=== PATIENT | male | born 1955 | race Caucasian/White ===

== ENCOUNTER 2021-10-25 13:13 | Emergency (ER) | payer MEDICARE, MEDICAID, SELFPAY ==
[2021-10-25 13:34] VITALS: BP 128/86; PULSE 77; RESP 16; TEMP 36.8; O2SAT 94
--- NOTE | 2021-10-25 13:39 | ED_ITS ---
HPI - Fall General: Chief Complaint: Fall Stated Complaint: injury to left & right eye Time Seen by Provider: 10/25/21 13:38 History of Present Illness: Mr. Cárdenas is a 66-year-old gentleman who presents to the emergency department due to fall with head injury. He reports 3 to 4 days ago being intoxicated with alcohol when he fell striking his face. He does not think that there were preceding symptoms necessarily but was intoxicated. He was able to ambulate after. He noticed bruising fairly quickly after. He does have facial pain but no specific areas. No changes in hearing or vision. Intensity symptoms is mild to moderate. Course has persisted. No other specific changes in health, exacerbating, or alleviating factors identified. Onset (ago): day(s) Fall from: standing Loss of consciousness: None Prolonged down time: no Symptoms prior to fall: none Context: alcohol use Location of injury: face Severity: moderate Quality: aching Review of Systems General: Reports: 10 or more systems reviewed and unremarkable except in HPI and below PFSH ED PFSH: Medical History (Updated 11/02/21 @ 00:01 by ) Atrial fibrillation COPD (chronic obstructive pulmonary disease) Family History (Updated 10/25/21 @ 14:43 by Yoandy Malin MD) Denies family history of Clotting disorder Bleeding disorder Social History (Updated 10/25/21 @ 14:44 by Yoandy Malin MD) Smoking and tobacco status: current every day smoker Alcohol intake: current Alcohol intake frequency: 3 or more drinks per day Alcohol type: hard liquor Physical Exam Const: COMMON NORMALS: alert GENERAL APPEARANCE: cooperative and well developed HENMT: COMMON NORMALS: normocephalic HEAD & SCALP: normocephalic THROAT: posterior oropharynx normal OTHER: Bilateral periorbital ecchymosis. No gerard signs. No hemotympanum. No otorrhea or rhinorrhea. Jaw alignment normal. Dentition baseline. No obvious bony step-offs. No septal hematoma. Displacement of nasal septum?mild. No evidence of ocular entrapment. Eye: COMMON NORMALS: conjunctivae normal CONJUNCTIVA: Yes conjunctivae normal SCLERA: sclerae normal Neck/C-Spine: COMMON NORMALS: supple GENERAL: Yes trachea midline Resp: COMMON NORMALS: normal respiratory effort EFFORT & INSPECTION: Yes able to speak in complete sentences AUSCULTATION: wheezes and diminished lung sounds Cardio: COMMON NORMALS: regular rate and regular rhythm RATE: regular rate RHYTHM: regular rhythm GI: COMMON NORMALS: Soft to palpation PALPATION: Yes Soft to palpation and No Tenderness to palpation present (GI) Back/Pelvis: COMMON NORMALS: no thoracic nor lumbar tenderness Extremity: GENERAL: Yes normal exam except as noted and No edema Neuro: COMMON NORMALS: moves all extremities SENSORIUM/ORIENTATION: Yes alert and No Orientation impaired Psych: COMMON NORMALS: mental status grossly normal and Normal thought process present THOUGHT PROCESS: Normal thought process present Course ED course: - Patient was seen and evaluated by me at bedside - Patient placed on cardiac monitors, vital signs obtained - Initial evaluation notable for bilateral periorbital ecchymosis, wheezing, exam as above - Imaging notable for 2 mm right frontotemporal lobe acute to subacute subdural hematoma, additional focus of increased density left anterior corpus callosum suspicious for acute focus of hemorrhage. He has prior large area of infarct. No evidence of basilar skull fracture on face bone CT. No acute C-spine injury. - Subsequently labs added on, Labs notable for normal hemoglobin, normal INR. No other significant abnormality requiring intervention. - Upon serial reexamination after treatment the patient was improved with breathing treatment - Based on patient history, evaluation, and testing as interpreted the most likely cause of the patient's condition is traumatic intracranial hemorrhage - The results of ED evaluation were discussed with the patient including plan for transfer due to requirement for level of care not available if discharged to prevent significant worsening/deterioration. Specifically patient requires neurosurgical specialist evaluation. - Patient accepted by Dr. Saucedo as a ED to ED transfer - Patient was transported by EMS from the emergency department without acute neurologic decompensation Note: Click bubbles or prepopulated gomes in note writing are used for assistance with data collection and billing and are inherently more limited than narrative and other text portions of this note. Please use narrative for additional clinical history and defer to narrative/free test for any case of contradictory information. If information appears in only free text or click bubble it should be considered present or absent as reported. Please contact note tech writer for clarifications of clinical information or contradictory information. MDM is a brief summary, contradictory or erroneous seeming information should be clarified and full note should be reviewed. Vital Signs: Vital signs: Vital Signs Temperature 98.2 F 10/25/21 13:34 Pulse Rate 90 10/25/21 13:56 Respiratory Rate 18 10/25/21 13:56 Blood Pressure 128/86 10/25/21 13:34 Pulse Oximetry 92 10/25/21 13:56 MDM - Fall Medical Decision Making 66-year-old gentleman with history of daily alcohol use approximately 1 pint per day presenting with significant fall from standing 3 days ago. He also has recurrent falls. Primary concern is bilateral black eyes. No focal neurologic deficits. Patient found to have subdural and intraparenchymal small hemorrhage. Transferred for neurosurgical evaluation, left in satisfactory condition wit hout acute neurologic decompensation. Medical Records I reviewed the patient's medical records. Lab Data I reviewed the patient's lab results. : 10/25/21 14:48 10/25/21 14:48 Radiology Impressions Cervical Spine CT 10/25/21 13:48 IMPRESSION: 1. Advanced degenerative changes throughout the cervical spine with areas of stenosis. 2. No acute fracture is identified. Face CT 10/25/21 13:48 IMPRESSION: 1. No definite acute fractures are identified. There is very minimal buckling of the anterior wall of the RIGHT maxillary sinus and the RIGHT nasal bone but no associated edema or air-fluid levels. 2. Moderate soft tissue hematoma centered over the RIGHT orbit and globe. Head CT 10/25/21 13:48 IMPRESSION: 1. Very small, 2 mm RIGHT frontotemporal lobe acute to subacute subdural hematoma. 2. Focus of increased density in the LEFT anterior corpus callosum suspicious for an acute focus of hemorrhage. 3. Prior large infarct with encephalomalacia in the RIGHT temporal, RIGHT occipital lobes. 4. Extra-axial dilatation RIGHT lateral ventricle. 5. No acute skull fracture or facial bone fracture identified. Facial bone CT to follow. Laboratory Results WBC 6.5 10^3/uL (4.0-10.0) 10/25/21 14:48 RBC 3.95 10^6/uL (4.1-5.3) L 10/25/21 14:48 Hgb 13.2 g/dL (11.7-16.6) 10/25/21 14:48 Hct 39.4 % (42.0-52.0) L 10/25/21 14:48 MCV 99.7 fl (80-94) H 10/25/21 14:48 MCH 33.4 pg (28.0-34.0) 10/25/21 14:48 MCHC 33.5 g/dL (30.0-36.0) 10/25/21 14:48 RDW 13.3 % (12.1-15.1) 10/25/21 14:48 Plt Count 192 10^3/cmm (130-400) 10/25/21 14:48 MPV 11.7 fL (7.4-10.4) H 10/25/21 14:48 Neut % (Auto) 62.4 % 10/25/21 14:48 Lymph % (Auto) 21.5 % 10/25/21 14:48 Maury % (Auto) 9.0 % 10/25/21 14:48 Eos % (Auto) 6.0 % 10/25/21 14:48 Baso % (Auto) 0.5 % 10/25/21 14:48 Neut # (Auto) 4.07 10^3/uL (1.8-7.7) 10/25/21 14:48 Lymph # (Auto) 1.4 10^3/uL (0.8-4.8) 10/25/21 14:48 Maury # (Auto) 0.6 10^3/uL (0.2-0.9) 10/25/21 14:48 Eos # (Auto) 0.4 10^3/uL (0.0-0.8) 10/25/21 14:48 Baso # (Auto) 0.0 10^3/uL (0.0-0.1) 10/25/21 14:48 Nucleated RBC % (auto) 0 % 10/25/21 14:48 Nucleated RBCs # 0.0 /100WBC 10/25/21 14:48 PT 14.10 SECONDS (12.1-14.9) 10/25/21 14:48 INR 1.06 (0.8-1.2) 10/25/21 14:48 APTT 26.8 SECONDS (23.9-36.7) 10/25/21 14:48 Sodium 141 mmol/L (136-145) 10/25/21 14:48 Potassium 3.9 mmol/L (3.5-5.1) 10/25/21 14:48 Chloride 107 mmol/L (98-107) 10/25/21 14:48 Carbon Dioxide 24 mmol/L (22-29) 10/25/21 14:48 Anion Gap 13.9 (5-19) 10/25/21 14:48 BUN 14 mg/dL (8-23) 10/25/21 14:48 Creatinine 0.7 mg/dL (0.7-1.2) 10/25/21 14:48 GFR Calculation 112.8 mL/min (90-130) 10/25/21 14:48 Glucose 109 mg/dL (65-115) 10/25/21 14:48 Calculated Osmolality 293 mOsm/kg (285-295) 10/25/21 14:48 Calcium 8.9 mg/dL (8.5-10.5) 10/25/21 14:48 Total Bilirubin 0.3 mg/dL (0.15-1.2) 10/25/21 14:48 AST 15 U/L (0-40) 10/25/21 14:48 ALT 16 U/L (0-41) 10/25/21 14:48 Alkaline Phosphatase 79 IU/L (40-130) 10/25/21 14:48 Total Protein 7.0 g/dL (6.6-8.7) 10/25/21 14:48 Albumin 4.4 g/dL (3.5-5.2) 10/25/21 14:48 Globulin 2.6 g/dL (1.3-4.6) 10/25/21 14:48 Critical Care Time 2 Critical Care Time: Critical Care Time: Yes Total Critical Care Time: 35 Attestation: Due to a high probability of clinically significant, possibly life threatening deterioration, the patient required my highest level of attention and preparedness to intervene emergently and I personally spent this critical care time directly and personally managing the patient. This critical care time included obtaining a history; examining the patient; pulse oximetry; ordering and review of laboratory and imaging studies; arranging urgent treatment with development of a management plan; evaluation of patient's response to treatment; frequent reassessment; and, discussions with other providers as applicable. It was exclusive of separately billable procedures. Primary involved is a trauma/neuro Discharge Plan Discharge Patient Disposition: Xfer Short-Term Hosp Clinical Impression: Intraparenchymal hemorrhage of brain, Traumatic subdural hemorrhage, Alcohol abuse, Recurrent falls, COPD (chronic obstructive pulmonary disease) Condition: Stable Coding Level of Care Code ED Materials Analyst for Rachel Fwd Exam Comprehensive
--- NOTE | 2021-10-25 13:48 | CT_ITS ---
WS: [id number] CT HEAD NONCONTRAST HISTORY: fall, head injury TECHNIQUE: Contiguous axial imaging performed through the brain in 2.5 mm imaging. Bone and soft tiss ue windows. Sagittal and coronal reformats reviewed. All CT scans at [facility] use at least one of these dose optimization techniques: automated exposure control; mA and/or kV adjustment per pa tient size (includes targeted exams where dose is matched to clinical indication); or iterative recon struction. DLP: 1043.56 mGy.cm COMPARISON: None available. Focal area of increased density measuring 8 x 6 mm involving the anterior LEFT corpus callosum. Suspi cious for hemorrhage. No prior studies for comparison. No adjacent edema. Large RIGHT occipital lobe infarct with extension into the parietal lobe. There is marked ex vacuole dilatation of the RIGHT lateral ventricle. Additional bilateral lacunar infarcts in the basal ganglia and LEFT caudate head. Prior infarct with encephalomalacia in the RIGHT temporal lobe. There is a very small, 2 mm acute to subacute subdural hematoma centered over the RIGHT frontotempora l lobe. No inferior displacement of cerebellar tonsils. Ventricles: Ventriculomegaly and extraocular dilatation involving the RIGHT ventricle. Paranasal sinuses: As visualized are clear. Mastoid air cells: Well pneumatized. Calvarium and scalp: RIGHT frontotemporal large craniotomy. No acute fracture. Soft tissue hematoma c entered over the RIGHT orbit. CT/CT head wo con* [id number] IMPRESSION: 1. Very small, 2 mm RIGHT frontotemporal lobe acute to subacute subdural hemat aniya. 2. Focus of increased density in the LEFT anterior corpus callosum suspicious for an acute focus of hemorrhage. 3. Prior large infarct with encephalomalacia in the RIGHT temporal, RIGHT occi pital lobes. 4. Extra-axial dilatation RIGHT lateral ventricle. 5. No acute skull fracture or facial bone fracture identified. Facial bone CT to follow.
--- NOTE | 2021-10-25 13:48 | CT_ITS ---
WS: [id number] CT FACIAL BONES HISTORY: fall, bilateral periorbital ecchymosis TECHNIQUE: Images obtained from the supraorbital location through the mandible. Soft tissue and bone windows are reviewed. Coronal and sagittal reformats have also been submitted. DLP: 628.[address] scans at [facility] use at least one of these dose optimization techniques: automated e xposure control; mA and/or kV adjustment per patient size (includes targeted exams where dose is matc hed to clinical indication); or iterative reconstruction. COMPARISON: None available. There is very slight buckling of the RIGHT lateral nasal bone and the anterior wall of the RIGHT maxi llary sinus. No fractures are identified. These may not be acute injuries. There is no adjacent edema or air-fluid level within the sinus. Moderate amount of soft tissue edema centered over the RIGHT or bit and globe. No retro-orbital hematoma. The globe appears intact. Advanced facet joint arthritis and disc disease in the upper cervical spine. The craniocervical junct ion is normally aligned. There is mild asymmetry with respect to the lateral masses of C1 and C2 but this could be degenerative and do 00to rotation of the patient. CT/CT facial bones wo con* [id number] IMPRESSION: 1. No definite acute fractures are identified. There is very minimal buckling of the anterior wall of the RIGHT maxillary sinus and the RIGHT nasal bone but no associated edema or air-fluid levels. 2. Moderate soft tissue hematoma centered over the RIGHT orbit and globe.
--- NOTE | 2021-10-25 13:48 | CT_ITS ---
WS: [id number] CT CERVICAL SPINE HISTORY: fall, head injury TECHNIQUE: Contiguous 2.5 mm axial imaging performed through the entire cervical spine. Sagittal and coronal reformats also performed. All CT scans at [facility] use at least one of these dose o ptimization techniques: automated exposure control; mA and/or kV adjustment per patient size (include s targeted exams where dose is matched to clinical indication); or iterative reconstruction. DLP: 292.77 mGy.cm COMPARISON: None available. Straightening and slight reversal the normal cervical lordosis. Fusion across the C5-6 disc. There ar e large bridging osteophytes anteriorly. There is disc space narrowing throughout the cervical spine. Craniocervical junction is well aligned. Mild asymmetry of the lateral masses is reidentified. This could be positional or degenerative related to the trauma. C2-C3: Mild osteophytic ridging. Mild LEFT foraminal stenosis. C3-C4: Marked osteophytic ridging and LEFT foraminal stenosis. Facet joint arthritis severe on the LE FT. C4-C5: Diffuse osteophytic ridging and facet arthritis. Central and bilateral foraminal stenosis. C5-C6: Diffuse osteophytic ridging with mild central and foraminal stenosis. C6-C7: Osteophytic ridging with mild central and moderate foraminal stenosis. C7-T1: Normal. Chronic emphysema at the lung apices. Paravertebral soft tissues are negative. Moderate calcification in the cervical carotid arteries. CT/CT cervical spin wo con* [id number] IMPRESSION: 1. Advanced degenerative changes throughout the cervical spine with areas of s tenosis. 2. No acute fracture is identified.
[2021-10-25] MEDS: ipratropium-albuterol 3 mL Neb INHALATION (13:55)
[2021-10-25 13:56] VITALS: PULSE 90; RESP 18; O2SAT 92
[2021-10-25 15:06] LABS: Basophils % 0.5 %; Eosinophils # 0.4 10^3/uL (0.0-0.8); Hematocrit 39.4 % (42.0-52.0); Hemoglobin 13.2 g/dL (11.7-16.6); Lymphocytes # 1.4 10^3/uL (0.8-4.8); Lymphocytes % 21.5 %; Mean Corpuscular HGB Conc 33.5 g/dL (30.0-36.0); Mean Corpuscular Hemoglobin 33.4 pg (28.0-34.0); Mean Corpuscular Volume 99.7 fl (80-94); Mean Platelet Volume 11.7 fL (7.4-10.4); Monocytes # 0.6 10^3/uL (0.2-0.9); Neutrophils # 4.07 10^3/uL (1.8-7.7); Neutrophils % 62.4 %; Nucleated Red Blood Cells % 0 %; Platelet Count 192 10^3/cmm (130-400); Red Blood Count 3.95 10^6/uL (4.1-5.3); Red Cell Distribution Width 13.3 % (12.1-15.1); White Blood Count 6.5 10^3/uL (4.0-10.0)
[2021-10-25 15:12] LABS: INR 1.06 (0.8-1.2)
[2021-10-25 15:13] LABS: Partial Thromboplastin Time 26.8 SECONDS (23.9-36.7)
[2021-10-25 15:24] LABS: Alanine Aminotransferase 16 U/L (0-41); Albumin Level 4.4 g/dL (3.5-5.2); Alkaline Phosphatase 79 IU/L (40-130); Anion Gap 13.9 (5-19); Aspartate Amino Transferase 15 U/L (0-40); Blood Urea Nitrogen 14 mg/dL (8-23); Calcium 8.9 mg/dL (8.5-10.5); Carbon Dioxide 24 mmol/L (22-29); Chloride 107 mmol/L (98-107); Globulin 2.6 g/dL (1.3-4.6); Glomerular Filtration Rate 112.8 mL/min (90-130); Glucose 109 mg/dL (65-115); Osmolality Calculated 293 mOsm/kg (285-295); Potassium 3.9 mmol/L (3.5-5.1); Sodium 141 mmol/L (136-145); Total Bilirubin 0.3 mg/dL (0.15-1.2)
== END 2021-10-25 17:22 | disposition short-term general hospital (02) ==
PROVIDERS: Emergency Provider Emergency Medicine
DX: S06.5X9A Traumatic subdural hemorrhage with loss of consciousness of unspecified duration, initial encounter (principal); S06.2X9A Diffuse traumatic brain injury with loss of consciousness of unspecified duration, initial encounter; J44.9 Chronic obstructive pulmonary disease, unspecified; F10.10 Alcohol abuse, uncomplicated; R29.6 Repeated falls; F17.210 Nicotine dependence, cigarettes, uncomplicated; W19.XXXA Unspecified fall, initial encounter
CPT/HCPCS: 70450; 70486; 72125; 80053; 85025; 85610; 85730; 94640; 99284